=== PATIENT | female | born 1990 | race Caucasian/White ===

== ENCOUNTER → 2016-11-16 | Outpatient (CLI) | payer MEDICAID ==
[~2016-11-16] VITALS: Ht 157.5 cm; Wt 73.2 kg
[~2016-11-16] MED LIST: BACTRIM DS 8001 TAB PO; CEPHALEXIN500 M1 PO; COLACE 100100 MG/CAP PO; FLINTSTONES COM1 CT1 PO; IBU600 MG PO; LORTAB 5/500 501 TAB PO; MACROBID 1100 MG/CAP PO; MOTRIN 600600 MG/TAB PO; MULTIPLE VITAMI1 CAP PO; NO HOME MEDICATIONS; NORCO 325 MG-51 TAB PO; OMNICEF 300MG300 MG PO; PEPCID 20MG TAB20 MG PO; PERCOCET 325 MG1 TA2 PO; PHENERGAN25 MG RC; PRENATAL1 TA1 PO; PROMETHAZINE12.5 M5 PO; ZOFRAN 4MG T4 MG/TAB PO; ZOFRAN ODT8 MG PO; ZOFRAN4 M1 PO
[2016-11-16 21:00] VITALS: BP 98/56; PULSE 76
[2016-11-16 21:15] VITALS: BP 104/61; PULSE 82
[2016-11-16 21:51] VITALS: BP 110/63; PULSE 85; TEMP 98.1
== END ==
LOC: LDRO 19:42
DX: O21.0 Mild hyperemesis gravidarum (principal); O22.13 Genital varices in pregnancy, third trimester; O99.333 Smoking (tobacco) complicating pregnancy, third trimester; F17.210 Nicotine dependence, cigarettes, uncomplicated; Z3A.35 35 weeks gestation of pregnancy

== ENCOUNTER 2016-12-12 23:24 | Inpatient (IN) | payer MEDICAID ==
[~2016-12-12] VITALS: Ht 160 cm; Wt 75.0 kg
[~2016-12-12 23:24] MED LIST changes: -COLACE 100100 MG/CAP PO; -IBU600 MG PO; -MACROBID 1100 MG/CAP PO; -OMNICEF 300MG300 MG PO
[2016-12-12 23:54] VITALS: BP 117/73; PULSE 85; TEMP 98.9
[2016-12-13] VITALS (38 sets, daily range): BP systolic 95–127; BP diastolic 29–79; PULSE 55–100; TEMP 97.4–98.3
[2016-12-13 01:25] LABS: BASO % 0.2 % (0.0-2.0); EOS # 0.3 (0.0-0.7); EOS % 3.1 % (0-4.0); GRAN # 6.4 (1.4-6.5); GRAN % 63.7 % (42.2-75.2); LYMPH # 2.5 (1.2-3.4); LYMPH % 25.2 % (20.0-51.0); MEAN CELL VOLUME 90 fl (80.0-100.0); MEAN CORPUSCULAR HGB CONC 34 g/dl (33.0-37.0); MEAN PLATELET VOLUME 10.3 fl (7.4-10.4); MONO # 0.7 (0.1-0.6); MONO % 7.1 % (1.7-9.3); PLATELET COUNT 189 K/mm3 (130-400); RED BLOOD COUNT 3.51 M/mm3 (4.10-5.30); REDCELL DISTRIBUTION WIDTH-CV 13.6 % (11.5-14.5)
[2016-12-13 01:26] LABS: HEMATOCRIT 31.7 % (37.0-47.0); HEMOGLOBIN 10.7 g/dl (12.5-16.0); MEAN CORPUSCULAR HEMOGLOBIN 30 pg (27.0-31.0)
[2016-12-13 01:42] LABS: AMPHETAMINE URINE NEGATIVE; BARBITURATES URINE NEGATIVE; BENZODIAZEPINES URINE NEGATIVE; BUPRENORPHINE URINE NEGATIVE; METHADONE URINE NEGATIVE; OPIATES URINE NEGATIVE; OXYCODONE URINE NEGATIVE; PHENCYCLIDINE URINE NEGATIVE; PROPOXYPHENE URINE NEGATIVE; THC CANNABINOIDS URINE NEGATIVE
[2016-12-14 08:11] LABS: HEMATOCRIT 32.5 % (37.0-47.0); HEMOGLOBIN 10.7 g/dl (12.5-16.0)
[2016-12-14] MEDS ORDERED: PERCOCET 325 MG1 TA2 PO (08:27)
[2016-12-14] MEDS ORDERED: IBU600 MG PO (08:27)
[2016-12-14 09:23] VITALS: BP 118/66; PULSE 70; TEMP 97.7
[2016-12-14 15:02] VITALS: BP 119/67; PULSE 79; TEMP 98
[2016-12-14 19:30] VITALS: BP 120/66; PULSE 75; TEMP 98.8
[2016-12-15 07:00] VITALS: BP 119/74; PULSE 80; TEMP 98
== END 2016-12-15 11:40 | disposition home or self-care (01) | DRG 775 ==
LOC: LDRO 23:24 → OB 12-13 00:36 → LDR 12-13 00:36 → OB 12-13 12:00
PROVIDERS: Obstetrics & Gynecology
PROC: 10E0XZZ Delivery of Products of Conception, External Approach (ICD-10-PCS; principal; 2016-12-13)
DX: O69.81X0 Labor and delivery complicated by cord around neck, without compression, not applicable or unspecified (principal); O99.013 Anemia complicating pregnancy, third trimester; D64.9 Anemia, unspecified; Z3A.39 39 weeks gestation of pregnancy; Z37.0 Single live birth
CPT/HCPCS: J2270; J2590; J2795; J7120

== ENCOUNTER 2017-01-03 10:07 | Emergency (ER) | payer MEDICAID ==
[~2017-01-03] VITALS: Ht 160 cm; Wt 59.1 kg
[~2017-01-03 10:07] MED LIST changes: +IBU600 MG PO
[2017-01-03 10:10] VITALS: BP 121/49; TEMP 98.1
[2017-01-03] MEDS ORDERED: COLACE 100100 MG/CAP PO (10:15)
[2017-01-03] MEDS ORDERED: MACROBID 1100 MG/CAP PO (10:15)
[2017-01-03 10:54] LABS: PH 6 (5-8); SQUAMOUS EPITHELIAL 0-2 /hpf; URINE APPEARANCE Clear; URINE BACTERIA None Seen /hpf; URINE BILIRUBIN Negative (NEGATIVE); URINE BLOOD Negative (NEGATIVE); URINE COLOR Colorless; URINE GLUCOSE Negative (NEGATIVE); URINE KETONE Negative (NEGATIVE); URINE RBC 0-2 /hpf; URINE UROBILINOGEN Negative (NEGATIVE); URINE WBC 0-2 /hpf
[2017-01-03 11:00] LABS: BASO % 0.5 % (0.0-2.0); EOS # 0.7 (0.0-0.7); EOS % 10.9 % (0-4.0); GRAN # 2.7 (1.4-6.5); GRAN % 43.5 % (42.2-75.2); HEMATOCRIT 41.2 % (37.0-47.0); HEMOGLOBIN 13.5 g/dl (12.5-16.0); LYMPH # 2.5 (1.2-3.4); MEAN CELL VOLUME 90 fl (80.0-100.0); MEAN CORPUSCULAR HEMOGLOBIN 30 pg (27.0-31.0); MEAN CORPUSCULAR HGB CONC 33 g/dl (33.0-37.0); MEAN PLATELET VOLUME 9.1 fl (7.4-10.4); MONO # 0.3 (0.1-0.6); MONO % 4.9 % (1.7-9.3); PLATELET COUNT 264 K/mm3 (130-400); RED BLOOD COUNT 4.57 M/mm3 (4.10-5.30); REDCELL DISTRIBUTION WIDTH-CV 12.6 % (11.5-14.5); WHITE BLOOD COUNT 6.1 K/mm3 (4.8-10.8)
[2017-01-03 11:45] LABS: ADJUSTED CALCIUM 8.9 mg/dL (8.4-10.2); ALBUMIN 4.4 gm/dL (3.5-5.0); BILIRUBIN,TOTAL 0.6 mg/dL (0.0-1.0); C-REACTIVE PROTEIN 0.7 mg/dL (0.0-0.9); CALCIUM 9.2 mg/dL (8.4-10.2); CREATININE, serum 0.7 mg/dL (0.52-1.25); POTASSIUM 4.1 mmol/L (3.4-5.0); TOTAL PROTEIN 7.9 gm/dL (6.4-8.2)
[2017-01-03] MEDS ORDERED: OMNICEF 300MG300 MG PO (12:25)
[2017-01-03] MEDS ORDERED: NORCO 325 MG-51 TAB PO (12:25)
[2017-01-03 12:36] VITALS: PULSE 74
== END 2017-01-03 12:38 | disposition home or self-care (01) ==
LOC: COL.ER 10:07
PROVIDERS: Emergency Medicine
DX: O86.21 Infection of kidney following delivery (principal)
CPT/HCPCS: J1885

== ENCOUNTER → 2017-05-22 | Outpatient (CLI) | payer MEDICAID ==
[~2017-05-22] MED LIST changes: +COLACE 100100 MG/CAP PO; +MACROBID 1100 MG/CAP PO; +OMNICEF 300MG300 MG PO
[2017-05-22 14:40] LABS: BASO % 0.4 % (0.0-2.0); EOS # 0.1 (0.0-0.7); EOS % 2.6 % (0-4.0); GRAN # 2.5 (1.4-6.5); GRAN % 50.2 % (42.2-75.2); HEMATOCRIT 40.9 % (37.0-47.0); HEMOGLOBIN 13.7 g/dl (12.5-16.0); LYMPH # 2.1 (1.2-3.4); LYMPH % 40.9 % (20.0-51.0); MEAN CELL VOLUME 88 fl (80.0-100.0); MEAN CORPUSCULAR HEMOGLOBIN 30 pg (27.0-31.0); MEAN CORPUSCULAR HGB CONC 34 g/dl (33.0-37.0); MEAN PLATELET VOLUME 9.6 fl (7.4-10.4); MONO # 0.3 (0.1-0.6); MONO % 5.7 % (1.7-9.3); PLATELET COUNT 234 K/mm3 (130-400); RED BLOOD COUNT 4.63 M/mm3 (4.10-5.30); REDCELL DISTRIBUTION WIDTH-CV 12.4 % (11.5-14.5); WHITE BLOOD COUNT 5.1 K/mm3 (4.8-10.8)
[2017-05-22 14:44] LABS: ALBUMIN 4.5 gm/dL (3.5-5.0); BILIRUBIN,TOTAL 0.5 mg/dL (0.0-1.0); CALCIUM 9.4 mg/dL (8.4-10.2); CREATININE, serum 0.7 mg/dL (0.52-1.25)
== END ==
LOC: COL.LAB 11:04
PROVIDERS: Family Medicine
DX: R30.0 Dysuria (principal)

== ENCOUNTER → 2017-06-04 | Outpatient (CLI) | payer MEDICAID | LOC: COL.LAB 09:55 | DX: Z01.89 Encounter for other specified special examinations (principal) ==

== ENCOUNTER → 2017-06-06 | Outpatient (CLI) | payer MEDICAID | LOC: COL.LAB 08:45 | DX: R30.0 Dysuria (principal) ==

== ENCOUNTER 2017-06-21 10:00 | Outpatient (RCR) | payer MEDICAID | END 2017-08-21 | LOC: MKS.ESL.PT | DX: M54.9 Dorsalgia, unspecified (principal) ==

== ENCOUNTER → 2017-12-01 | Outpatient (CLI) | payer MEDICAID | LOC: ZCOL.LAB 16:35 | DX: R19.7 Diarrhea, unspecified (principal); Z88.8 Allergy status to other drugs, medicaments and biological substances ==

== ENCOUNTER → 2018-01-28 | Outpatient (CLI) | payer MEDICAID | LOC: COL.LAB 15:07 | DX: R19.5 Other fecal abnormalities (principal) ==

== ENCOUNTER → 2018-01-30 | Outpatient (CLI) | payer MEDICAID | LOC: COL.LAB 13:47 | DX: R19.5 Other fecal abnormalities (principal) ==

== ENCOUNTER 2018-08-22 16:07 | Outpatient (CLI) | payer MEDICAID ==
[~2018-08-22] VITALS: Ht 160 cm; Wt 75.0 kg
[2018-08-22] MEDS ORDERED: ZOFRAN 4MG T4 MG/TAB PO (16:18)
[2018-08-22 16:19] VITALS: BP 109/60; PULSE 115; TEMP 99
[2018-08-22 16:30] VITALS: BP 109/60; PULSE 115; TEMP 99
[2018-08-22 17:33] LABS: BASO % 0.2 % (0.0-2.0); EOS % 0.2 % (0-4.0); GRAN # 13.4 (1.4-6.5); GRAN % 89.3 % (42.2-75.2); HEMOGLOBIN 12.3 g/dl (12.5-16.0); LYMPH # 0.9 (1.2-3.4); MEAN CELL VOLUME 94 fl (80.0-100.0); MEAN CORPUSCULAR HEMOGLOBIN 32 pg (27.0-31.0); MEAN CORPUSCULAR HGB CONC 34 g/dl (33.0-37.0); MEAN PLATELET VOLUME 10.2 fl (7.4-10.4); MONO # 0.5 (0.1-0.6); MONO % 3.5 % (1.7-9.3); PLATELET COUNT 222 K/mm3 (130-400); REDCELL DISTRIBUTION WIDTH-CV 13.9 % (11.5-14.5)
[2018-08-22 17:34] LABS: HEMATOCRIT 36.7 % (37.0-47.0)
[2018-08-22 17:40] LABS: ALBUMIN 3.8 gm/dL (3.5-5.0); BILIRUBIN,TOTAL 0.7 mg/dL (0.0-1.0); CALCIUM 8.8 mg/dL (8.4-10.2); CREATININE, serum 0.62 mg/dL (0.52-1.25); POTASSIUM 3.6 mmol/L (3.4-5.0); TOTAL PROTEIN 7.4 gm/dL (6.4-8.2)
[2018-08-22 19:30] VITALS: TEMP 99
[2018-08-22 19:37] LABS: COLLECTION METHOD CLEAN CATCH
[2018-08-22 19:42] LABS: MUCOUS Present /lpf; PH 5 (5-8); URINE APPEARANCE Clear; URINE BACTERIA None Seen /hpf; URINE BILIRUBIN Negative (NEGATIVE); URINE BLOOD Negative (NEGATIVE); URINE COLOR Yellow; URINE GLUCOSE 3+ (NEGATIVE); URINE KETONE 2+ (NEGATIVE); URINE LEUKOCYTE ESTERASE Negative (NEGATIVE); URINE NITRATE Negative (NEGATIVE); URINE PROTEIN(semi-quant) 2+ (NEGATIVE); URINE RBC 0-2 /hpf; URINE WBC 0-2 /hpf
[2018-08-22 21:30] VITALS: TEMP 99
== END 2018-08-22 22:30 | disposition home or self-care (01) ==
LOC: LDRO 16:07
PROVIDERS: Obstetrics & Gynecology
DX: O26.893 Other specified pregnancy related conditions, third trimester (principal); R11.2 Nausea with vomiting, unspecified; R19.7 Diarrhea, unspecified; Z3A.36 36 weeks gestation of pregnancy
CPT/HCPCS: J2550; J2765

== ENCOUNTER → 2018-08-22 | Emergency (ER) | payer MEDICAID ==
[~2018-08-22] VITALS: Ht 160 cm; Wt 75.0 kg
[2018-08-22 15:54] VITALS: BP 129/64; PULSE 121; TEMP 99.1
== END ==
LOC: COL.ER 15:37
DX: O21.9 Vomiting of pregnancy, unspecified (principal); Z3A.09 9 weeks gestation of pregnancy

== ENCOUNTER 2018-09-15 01:43 | Inpatient (IN) | payer MEDICAID ==
[2018-09-15] VITALS (22 sets, daily range): BP systolic 98–136; BP diastolic 50–76; PULSE 66–133; TEMP 97.7–98.2
[~2018-09-15] VITALS: Ht 160 cm; Wt 75.0 kg
--- NOTE | 2018-09-15 01:50 | NUR ---
G5L3 at 39 weeks and 6 days arrives to unit ambulatory with complaint of contractions every 10 minutes at home. States that they started around midnight and have increased in frequency and intensity. Pt denies vaginal bleeding or LOF and is having good movement. Pt oriented to room and changed into gown. EFM and toco explained and applied. Vital signs obtained. Admission assessment started. Plan of care reviewed with patient and significant other. 0200 - SVE 5-6/-3 intact.
--- NOTE | 2018-09-15 02:45 | NUR ---
Pt requesting epidural at this time. Luh Tran CRNA notified 0250 - IV started in L wrist with 1 attempt. Labs obtained off IV start. LR bolus initiated. 0300 - Consents reviewed and signed with patient and significant other. All questions answered.
--- NOTE | 2018-09-15 03:05 | NUR ---
0305 - DAYRON Holt at bedside. Pt up to void at this time. 150 mL clear yellow urine out. 0308 - Patient back in bed and positioned to sitting on edge of bed for epidural placement. Epidural risks, benefits, and procedure explained to patient, pt verbalized understanding. 0314 - Single shot by DAYRON Holt. Pt denies any adverse reactions. 0325 - Pt repositioned to L side lying. See anesthesia record for further review.
[2018-09-15 03:07] LABS: BASO % 0.3 % (0.0-2.0); EOS # 0.2 (0.0-0.7); EOS % 1.4 % (0-4.0); GRAN # 8.5 (1.4-6.5); GRAN % 67.4 % (42.2-75.2); HEMATOCRIT 33.2 % (37.0-47.0); HEMOGLOBIN 11.2 g/dl (12.5-16.0); LYMPH # 2.8 (1.2-3.4); LYMPH % 22.3 % (20.0-51.0); MEAN CELL VOLUME 93 fl (80.0-100.0); MEAN CORPUSCULAR HEMOGLOBIN 31 pg (27.0-31.0); MEAN CORPUSCULAR HGB CONC 34 g/dl (33.0-37.0); MONO # 0.9 (0.1-0.6); MONO % 7.2 % (1.7-9.3); PLATELET COUNT 198 K/mm3 (130-400); RED BLOOD COUNT 3.58 M/mm3 (4.10-5.30); REDCELL DISTRIBUTION WIDTH-CV 13.7 % (11.5-14.5)
--- NOTE | 2018-09-15 03:41 | NUR ---
Pt called out stating that her water broke. Large amount of clear fluid noted on peritowel. SVE -/-2
--- NOTE | 2018-09-15 04:30 | NUR ---
Trent placed to dependent drainage. Secured to leg with statlock. Clear, yellow urine returned. SVE /-2
--- NOTE | 2018-09-15 06:17 | NUR ---
0545 - SVE complete and +1 station. Pt comfortable with epidural. Dr. Ramirez notified to come to hospital for delivery. 0555 - 0605 pt with jackie RN at bedside handholding monitors. 0612 - Dr. Ramirez at bedside, performed SVE, ready to start pushing. Pt positioned into footplates. Nursery called for delivery. Trent removed. 0616 - Pt educated on pushing techniques. Dr. Ramirez gowned and gloved at perineum. Nursery at bedside. Initial push. 0617 - Spontaneous delivery of viable infant girl. Shoulder cord noted on delivery. Infant placed on mothers abdomen. Care of infant assumed to ELLEN Reese. Cord clamped and cut by Dr. Ramirez. 0620 - Spontaneous delivery of placenta. Bimanual performed by Dr. Ramirez to ensure no retained products. Perineum intact. Pitocin initiated at 333mL/hr per protocol. Fundal massage started, fundus firm and down 2 from umbilicus. 0623 - Ice pack applied to perineum. Pt repositioned in bed to semi fowlers. recovery started.
[2018-09-16 07:00] VITALS: BP 120/68; PULSE 76; TEMP 98.1
[2018-09-16] MEDS ORDERED: PERCOCET 325 MG1 TA2 PO (07:57)
[2018-09-16] MEDS ORDERED: IBU800 M1 PO (07:57)
--- NOTE | 2018-09-16 09:39 | NUR ---
Initial visit attempt; Family resting, Kennel Technician left card of congratulations for the of their daughter and information regarding the availability of spiritual care at [facility].
[2018-09-16 17:00] VITALS: BP 114/50; PULSE 73; TEMP 97.6
[2018-09-16 20:48] VITALS: BP 118/69; PULSE 76; TEMP 98.4
--- NOTE | 2018-09-17 07:30 | NUR ---
Rests in bed, alert, baby. Denies any needs at this time.
--- NOTE | 2018-09-17 08:30 | NUR ---
Rests in bed, alert. Denies any pain or discomfort at this time.
[2018-09-17 09:00] VITALS: BP 108/59; PULSE 84; TEMP 97.7
--- NOTE | 2018-09-17 09:30 | NUR ---
1013 Ibuprofen 800 mg., percocet 5/325 mg p.o. given per request and as ordered.
--- NOTE | 2018-09-17 10:30 | NUR ---
States going to take a shower.
--- NOTE | 2018-09-17 12:30 | NUR ---
Rests in bed, alert. States ready to go home. Dr. Boyce called and said he would be here in fifteen minutes. Discharge orders given, verbalizes understanding.
== END 2018-09-17 13:15 | disposition home or self-care (01) | DRG 807 ==
LOC: LDRO 01:43 → OB 02:32 → LDR 02:32 → OB 09:30
PROVIDERS: ADMIT Obstetrics & Gynecology
PROC: 10E0XZZ Delivery of Products of Conception, External Approach (ICD-10-PCS; principal; 2018-09-15)
DX: O69.81X0 Labor and delivery complicated by cord around neck, without compression, not applicable or unspecified (principal); Z37.0 Single live birth; Z3A.39 39 weeks gestation of pregnancy; O99.344 Other mental disorders complicating childbirth; F32.9 Major depressive disorder, single episode, unspecified; J45.909 Unspecified asthma, uncomplicated; R00.2 Palpitations; K52.9 Noninfective gastroenteritis and colitis, unspecified
CPT/HCPCS: J2590; J2795; J7120

== ENCOUNTER → 2018-12-19 | Outpatient (CLI) | payer MEDICAID ==
[~2018-12-19] MED LIST changes: +IBU800 M1 PO
[2018-12-19 18:03] LABS: COLLECTION METHOD CATHETER
[2018-12-19 18:11] LABS: CALCIUM 9.5 mg/dL (8.4-10.2); CREATININE, serum 0.9 (0.52-1.25); PH 7 (5-8); POTASSIUM 4.2 mmol/L (3.4-5.0); URINE APPEARANCE Hazy; URINE BACTERIA Rare /hpf; URINE BILIRUBIN Negative (NEGATIVE); URINE BLOOD Negative (NEGATIVE); URINE COLOR Yellow; URINE GLUCOSE Negative (NEGATIVE); URINE KETONE Negative (NEGATIVE); URINE LEUKOCYTE ESTERASE Trace (NEGATIVE); URINE NITRATE Negative (NEGATIVE); URINE PROTEIN(semi-quant) Negative (NEGATIVE); URINE RBC 0-2 /hpf; URINE UROBILINOGEN Negative (NEGATIVE)
[2018-12-20 16:01] LABS: CREATININE OTHER SOURCE 123 mg/dL (()); URINE MICROALBUMIN <0.5 mg/dL (0.0-1.7)
== END ==
LOC: ZCOL.LAB 16:09
PROVIDERS: Family Medicine
DX: R79.9 Abnormal finding of blood chemistry, unspecified (principal)

== ENCOUNTER → 2018-12-22 | Outpatient (CLI) | payer MEDICAID | LOC: COL.LAB 08:34 → COL.RAD 08:43 | DX: M54.5 Low back pain (principal) ==

== ENCOUNTER → 2019-04-01 | Outpatient (CLI) | payer MEDICAID | LOC: COL.VAS 09:45 | DX: R79.9 Abnormal finding of blood chemistry, unspecified (principal); M54.5 Low back pain ==

== ENCOUNTER → 2019-06-04 | Outpatient (CLI) | payer MEDICAID ==
[2019-06-04 11:04] LABS: INR 0.9 (0.8-3.0); PROTHROMBIN TIME 10.3 SECONDS (9.7-12.8)
[2019-06-04 11:07] LABS: PARTIAL THROMBOPLASTIN TIME 30.8 SECONDS (26.0-37.0)
== END ==
LOC: ZCOL.LAB 10:26
PROVIDERS: Family Medicine
DX: R23.8 Other skin changes (principal)

== ENCOUNTER 2019-06-07 11:58 | Emergency (ER) | payer MEDICAID ==
[~2019-06-07] VITALS: Ht 160 cm; Wt 68.2 kg
[2019-06-07 12:48] VITALS: BP 118/84; TEMP 98.3
[2019-06-07] MEDS ORDERED: DOXYCYCLINE HY100 MG PO (13:42)
[2019-06-07 14:23] LABS: COLLECTION METHOD CLEAN CATCH
[2019-06-07 14:24] LABS: BASO % 0.4 % (0.0-2.0); EOS # 0.1 (0.0-0.7); EOS % 2.6 % (0-4.0); GRAN # 3.1 (1.4-6.5); GRAN % 62.8 % (42.2-75.2); HEMATOCRIT 41.7 % (37.0-47.0); HEMOGLOBIN 13.9 g/dl (12.5-16.0); LYMPH # 1.3 (1.2-3.4); MEAN CELL VOLUME 90 fl (80.0-100.0); MEAN CORPUSCULAR HEMOGLOBIN 30 pg (27.0-31.0); MEAN CORPUSCULAR HGB CONC 33 g/dl (33.0-37.0); MEAN PLATELET VOLUME 9.1 fl (7.4-10.4); MONO # 0.4 (0.1-0.6); PLATELET COUNT 184 K/mm3 (130-400); RED BLOOD COUNT 4.65 M/mm3 (4.10-5.30); REDCELL DISTRIBUTION WIDTH-CV 13.1 % (11.5-14.5)
[2019-06-07 14:29] LABS: MUCOUS Present /lpf; PH 5 (5-8); URINE APPEARANCE Clear; URINE BACTERIA None Seen /hpf; URINE BILIRUBIN Negative (NEGATIVE); URINE BLOOD Negative (NEGATIVE); URINE COLOR Yellow; URINE GLUCOSE Negative (NEGATIVE); URINE KETONE Negative (NEGATIVE); URINE LEUKOCYTE ESTERASE Negative (NEGATIVE); URINE NITRATE Negative (NEGATIVE); URINE PROTEIN(semi-quant) Negative (NEGATIVE); URINE RBC 0-2 /hpf; URINE UROBILINOGEN Negative (NEGATIVE)
[2019-06-07 15:13] LABS: ALBUMIN 4.7 gm/dL (3.5-5.0); BILIRUBIN,TOTAL 0.4 mg/dL (0.0-1.0); C-REACTIVE PROTEIN 1.9 mg/dL (0.0-0.9); CALCIUM 9.2 mg/dL (8.4-10.2); CREATININE, serum 0.74 (0.52-1.25); POTASSIUM 4.2 mmol/L (3.4-5.0); TOTAL PROTEIN 8.1 gm/dL (6.4-8.2)
[2019-06-07 17:43] VITALS: PULSE 75
== END 2019-06-07 17:43 | disposition home or self-care (01) ==
LOC: COL.ER 11:58
PROVIDERS: Emergency Medicine
DX: I88.0 Nonspecific mesenteric lymphadenitis (principal)
CPT/HCPCS: J0780; J1170; J7030; Q9967

== ENCOUNTER → 2020-06-03 | Outpatient (CLI) | payer MEDICAID ==
[~2020-06-03] MED LIST changes: +DOXYCYCLINE HY100 MG PO
== END ==
LOC: ZCOL.LAB 14:22
DX: B34.9 Viral infection, unspecified (principal); Z20.828 Contact with and (suspected) exposure to other viral communicable diseases

== ENCOUNTER → 2020-08-25 | Outpatient (CLI) | payer MEDICAID ==
[~2020-08-25] MED LIST changes: +NUPERCAINAL OIN30 GM RC; +ROXICODONE 55 MG/TAB PO
== END | disposition home or self-care (01) ==
LOC: ZCOL.LAB
DX: Z20.828 Contact with and (suspected) exposure to other viral communicable diseases (principal)

== ENCOUNTER 2020-08-28 03:10 | Emergency (ER) | payer MEDICAID ==
[~2020-08-28] VITALS: Ht 160 cm; Wt 75.0 kg
[~2020-08-28 03:10] MED LIST changes: -NUPERCAINAL OIN30 GM RC; -ROXICODONE 55 MG/TAB PO
[2020-08-28 03:15] VITALS: TEMP 97.1
[2020-08-28] MEDS ORDERED: ZOFRAN 4MG T4 MG/TAB PO (03:31)
[2020-08-28 04:35] VITALS: BP 122/70; PULSE 77
[2020-08-28] MEDS ORDERED: NUPERCAINAL OIN30 GM RC (04:36)
== END 2020-08-28 04:35 | disposition home or self-care (01) ==
LOC: COL.ER 03:10
DX: K64.5 Perianal venous thrombosis (principal)

== ENCOUNTER 2020-08-30 13:24 | Inpatient (IN) | payer MEDICAID ==
[~2020-08-30] VITALS: Ht 160 cm; Wt 75.0 kg
[2020-08-30] VITALS (34 sets, daily range): BP systolic 91–126; BP diastolic 53–74; PULSE 60–108; TEMP 97–98
[~2020-08-30 13:24] MED LIST changes: +NUPERCAINAL OIN30 GM RC
--- NOTE | 2020-08-30 13:25 | NUR ---
Patient arrives ambulatory with FOB for scheduled induction of labor. Patient denies contractions, ROM or vaginal bleeding. Reports normal movemement. Patient complains of "severe pain from having my hemmorhoid lanced this Saturday". Plans on epidural for pain relief. Patient changes into gown, EFM explained and placed. VS obtained. Plan of care for induction reviewed, patient denies questions and agrees to plan of care. 1340- IV started in LH. Labs drawn and sent. LR infusing per protocol and order. Consents explained and signed. Assessment completed. Patient denies questions. 1410- Pitocin administration reveiwed with patient. Patient agrees and denies questions. Category 1 FHR strip obtained. Pitocin started at 2 mU per protocol and order.
[2020-08-30] MEDS ORDERED: ROXICODONE 55 MG/TAB PO (14:10)
--- NOTE | 2020-08-30 14:10 | NUR ---
Patient refuses SVE at this time. Prefers to wait until she is ready for her epidural to be checked.
[2020-08-30 14:25] LABS: BASO % 0.2 % (0.0-2.0); EOS # 0.1 (0.0-0.7); EOS % 0.5 % (0-4.0); GRAN # 6.8 (1.4-6.5); GRAN % 71.7 % (42.2-75.2); HEMOGLOBIN 11.2 g/dl (12.5-16.0); LYMPH % 21.3 % (20.0-51.0); MEAN CELL VOLUME 92 fl (80.0-100.0); MEAN CORPUSCULAR HEMOGLOBIN 31 pg (27.0-31.0); MEAN CORPUSCULAR HGB CONC 34 g/dl (33.0-37.0); MEAN PLATELET VOLUME 10.2 fl (7.4-10.4); MONO # 0.5 (0.1-0.6); MONO % 5.5 % (1.7-9.3); PLATELET COUNT 234 K/mm3 (130-400); RED BLOOD COUNT 3.61 M/mm3 (4.10-5.30); REDCELL DISTRIBUTION WIDTH-CV 13.5 % (11.5-14.5)
[2020-08-30 14:28] LABS: HEMATOCRIT 33.1 % (37.0-47.0)
--- NOTE | 2020-08-30 17:57 | NUR ---
Patient assisted to sit on edge of bed for epidural placement. Vasu Stringer CRNA at bedside. 1808- SS via epidural per Vasu Stringer CRNA. Patient tolerates well, no adverse reactions noted. See anesthesia record. 1811- Patient repositioned WR following epidural placement. Updated on plan of care and safety.
--- NOTE | 2020-08-30 18:55 | NUR ---
Dr. Boyce at the bedside. FHR tracing reviewed. Plan of care for follow up with hemorroids. SVE per Dr. Boyce /-3 AROM at 1901 with clear fluid.
--- NOTE | 2020-08-30 20:51 | NUR ---
Spoke with Dr. Boyce for an update on pt's status. FHR tracing and SVE reviewed. Orders to decrease the pitocin infusion in half.
--- NOTE | 2020-08-30 21:45 | NUR ---
2123- SVE by this RN 2125- Dr. Boyce notified of pt's status. on his way to the hospital for pending delivery. 2134- Trent removed without complications. 2139- at the bedside. Pt set up for delivery. 2144- of viable male . Cords clamped and cut. Care of the given to nursery RN at the bedside. 2147- of placenta. Pitocin started at 333ml/hr per order and protocol. Fundus firm with lochia WNL.
--- NOTE | 2020-08-31 00:35 | NUR ---
Pt up to the bathroom with use of the wheelchair and without complications. Pt was able to void. Madiha-care done. Pt transferred to room 207 via wheelchair and assisted to bed. Oriented to room and bed. Call light within reach. Plan of care reviewed with pt and .
[2020-08-31 00:45] VITALS: BP 113/62; PULSE 67
[2020-08-31 04:10] VITALS: BP 100/60; PULSE 71; TEMP 97.8
[2020-08-31 08:05] VITALS: BP 109/67; PULSE 79; TEMP 97.9
[2020-08-31 08:48] LABS: HEMOGLOBIN 11.4 g/dl (12.5-16.0)
[2020-08-31 08:51] LABS: HEMATOCRIT 33.8 % (37.0-47.0)
--- NOTE | 2020-08-31 09:02 | NUR ---
Initial visit; Parents thanked Transportation Consultant for offering congratulations and God's blessings for the of their son. Transportation Consultant thanked family for choosing [facility].
[2020-08-31 12:15] VITALS: BP 82/49; PULSE 58; TEMP 98.4
[2020-08-31 16:19] VITALS: BP 115/56; PULSE 100; TEMP 98.5
[2020-08-31 20:30] VITALS: BP 103/55; PULSE 70; TEMP 98
[2020-09-01 07:28] VITALS: BP 107/66; PULSE 63; TEMP 97.8
[2020-09-01] MEDS ORDERED: IBU600 MG PO (08:17)
[2020-09-01] MEDS ORDERED: PERCOCET 325 MG1 TA2 PO (08:18)
== END 2020-09-01 13:30 | disposition home or self-care (01) | DRG 807 ==
LOC: OB → LDR 13:24 → OB 13:24
PROVIDERS: ADMIT Obstetrics & Gynecology
PROC: 10E0XZZ Delivery of Products of Conception, External Approach (ICD-10-PCS; principal; 2020-08-30)
PROC: 3E033VJ Introduction of Other Hormone into Peripheral Vein, Percutaneous Approach (ICD-10-PCS; 2020-08-30)
DX: O99.62 Diseases of the digestive system complicating childbirth (principal); Z37.0 Single live birth; O34.13 Maternal care for benign tumor of corpus uteri, third trimester; O99.52 Diseases of the respiratory system complicating childbirth; O99.344 Other mental disorders complicating childbirth; F32.9 Major depressive disorder, single episode, unspecified; Z3A.39 39 weeks gestation of pregnancy; J45.20 Mild intermittent asthma, uncomplicated; K64.4 Residual hemorrhoidal skin tags; D21.9 Benign neoplasm of connective and other soft tissue, unspecified
CPT/HCPCS: J2400; J2590; J2795; J7120

== ENCOUNTER → 2024-03-25 | Outpatient (CLI) | payer MEDICAID ==
[~2024-03-25] MED LIST changes: +ROXICODONE 55 MG/TAB PO
== END ==
LOC: COL.RAD 14:15
DX: R10.9 Unspecified abdominal pain (principal)